=== PATIENT | female | born 1950 | race African-American/Black ===

== ENCOUNTER 2020-05-18 09:24 | Inpatient (IN) | payer OTHER ==
[~2020-05-18] VITALS: Ht 165.1 cm; Wt 74.7 kg
[2020-05-18 09:25] VITALS: BP 238/138
[2020-05-18 09:41] LABS: ABSOLUTE NEUTROPHILS 5.1 thou/uL (1.4-8.2); BASOPHILS 0.5 % (0.0-2.0); EOSINOPHILS 1.9 % (0.0-3.0); HEMATOCRIT 35.3 % (37.0-47.0); HEMOGLOBIN 11.6 gm/dL (12.0-15.0); LYMPHOCYTES 28.6 % (24.0-44.0); MCV 81.8 fL (80.0-100.0); MONOCYTES 7.5 % (1.0-8.0); PLATELET COUNT 328 thou/uL (150-400); POLYS 61.5 % (36.0-66.0); RBC 4.31 mil/uL (4.20-5.00); RDW 14.4 % (10.5-14.5); WBC 8.2 thou/uL (4.0-11.0)
[2020-05-18 09:49] LABS: ANION GAP 10 mmol/L (7-16); BUN 39 mg/dL (7-18); CALCIUM 8.8 mg/dL (8.5-10.1); CHLORIDE 106 mmol/L (98-107); CO2 24 mmol/L (21-32); CREATININE 2.1 mg/dL (0.6-1.0); GLUCOSE 177 mg/dL (74-106); POTASSIUM 4.2 mmol/L (3.5-5.1); SODIUM 140 mmol/L (136-145)
--- NOTE | 2020-05-18 09:51 | EKG ---
[facility] [place] [address] ELECTROCARDIOGRAM REPORT Name: MARIANO EISENBERG Room #: PRE [facility]..#: [id number] Admission: Attend Phys: Discharge: Date of : 46 Report #: [id number] THIS REPORT FOR: cc: Antonio Loja MD [facility] ~ THIS REPORT FOR: //name// [facility] ED Test Date: 2020-05-18 Test Time: 09:29:41 Pat Name: MARIANO EISENBERG Department: Room: Gender: F Cancer Genetics Assistant: BRIAN : 1950 Requested By: Robert Hsieh Order Number: [id number] MD: Antonio Loja Measurements Intervals [place] Rate: 78 P: 67 [place]: 153 QRS: 21 QRSD: 86 T: 240 QT: 379 QTc: 432 Interpretive Statements Sinus rhythm Ventricular premature complex J Point elevation V-2 Probable left atrial enlargement Probable LVH with secondary repol abnrm No previous ECG available for comparison Electronically Signed On 05-18-2020 9:51:04 RADIO ELECTRICIAN by Antonio Loja [email or web address] <ELECTRONICALLY SIGNED> By: Antonio Loja MD, FACC 05/18/20 0951 8 Antonio Loja MD, FACC /EPI
[2020-05-18 09:58] LABS: ALBUMIN 2.8 g/dL (3.4-5.0); SGOT 27 U/L (15-37); SGPT 21 U/L (30-65); TOTAL BILIRUBIN 0.3 mg/dL (0.2-1.0); TOTAL PROTEIN 8.4 g/dL (6.4-8.2); TROPONIN-I <0.06 ng/mL (<0.06)
[2020-05-18 09:59] LABS: BE(vivo) -2.9 mmol/L (-2 to +3); HCO3 20.6 mmol/L (22.0-26.0); PCO2 31.6 mmHg (35.0-45.0); pH 7.431 (7.360-7.450); sO2 95.9 % (92.0-98.0)
[2020-05-18] MEDS ORDERED: ZESTRIL40 MG PO (10:36)
[2020-05-18] MEDS ORDERED: FUROSEMIDE 20 M20 MG PO (10:37)
[2020-05-18 10:38] VITALS: BP 208/114
[2020-05-18] MEDS ORDERED: ATENOLOL 50MG T50 M1 PO (10:41)
[2020-05-18] MEDS ORDERED: NEURONTIN 300M300 M2 PO (10:41)
[2020-05-18] MEDS ORDERED: DULOXETINE HCL30 MG PO (10:42)
[2020-05-18] MEDS ORDERED: LANTUS SOL100 UNIT/1 SUBQ (10:43)
[2020-05-18] MEDS ORDERED: LIPITOR 40 MG T40 M1 PO (10:43)
[2020-05-18] MEDS ORDERED: PROTONIX40 M2 PO (10:44)
[2020-05-18] MEDS ORDERED: NOVOLOG FL100 UNIT/M (10:44)
[2020-05-18] MEDS ORDERED: METOPROLOL SUCC25 M1 PO (10:45)
[2020-05-18 13:32] LABS: CHOLESTEROL 133 mg/dL (<200); HDL CHOLESTEROL 47 mg/dL (>40); LDL CHOLESTEROL 66 mg/dL (<100); TC:HDL 2.8 Ratio (Not establshd); TRIGLYCERIDE 103 mg/dL (<150); VLDL 21 mg/dL (<40)
[2020-05-18 20:17] VITALS: BP 160/78
[2020-05-18 21:09] VITALS: BP 177/93
[2020-05-19 00:36] VITALS: BP 167/98
--- NOTE | 2020-05-19 02:04 | NUR ---
PT ADMITTED FROM ER TO ROOM 217, a&o, VSS BP REMAINS ELEVATED, NO C/O PAIN, ORIENTED TO ROOM AND BED, STATES SHE USES A CANE AT HOME AND THINKS SHE LEFT IT IN AMBULANCE, WILL CON'T TO MONITOR PER PPOC.
[2020-05-19 02:54] VITALS: BP 177/86
[2020-05-19 05:46] LABS: ALBUMIN 2.3 g/dL (3.4-5.0); ANION GAP 8 mmol/L (7-16); BUN 38 mg/dL (7-18); CHLORIDE 108 mmol/L (98-107); CO2 26 mmol/L (21-32); CREATININE 1.9 mg/dL (0.6-1.0); GLUCOSE 146 mg/dL (74-106); MAGNESIUM 1.9 mg/dL (1.8-2.4); PHOSPHORUS 4.2 mg/dL (2.5-4.9); SODIUM 142 mmol/L (136-145); TROPONIN-I <0.06 ng/mL (<0.06)
[2020-05-19 07:06] LABS: GLYCOHEMOGLOBIN (HGB A1C) 4.9 % (4.8-5.6)
--- NOTE | 2020-05-19 09:53 | 2DMMODE ---
[facility] [address] [place] [address] 2 D/M-MODE ECHOCARDIOGRAM Name: MARIANO EISENBERG Room #: 217-P ADM IN M.R.#: [id number] Admission: 05/18/20 Attend Phys: Monae Riley Discharge: Date of : 46 Report #: [id number] THIS REPORT FOR: cc: FAM - Family physician unknown FAM - Family physician unknown Neel Marcelino MD [facility] ~ APPROVED REPORT Study performed: 05/19/2020 10:07:32 EXAM: Comprehensive 2D, Doppler, and color-flow Echocardiogram Patient Location: Bedside Room #: 217 Status: routine BSA: 1.84 HR: 70 bpm BP: 177/86 mmHg Rhythm: NSR Other Information Study Quality: Good Indications Diabetes Dyspnea Hypertension/HDD 2D Dimensions RVDd: 38.16 mm IVSd: 12.27 (7-11mm) LVOT Diam: 19.01 (18-24mm) LVDd: 41.61 mm PWd: 12.53 (7-11mm) Ascending Ao: 33.15 (22-36mm) LVDs: 29.69 (25-40mm) Aortic Root: 30.40 mm IVC: 15.00 mm Volumes Left Atrial Volume (Systole) Single Plane 4CH: 60.52 mL Single Plane 2CH: 39.24 mL LA ESV Index: 29.00 mL/m2 Aortic Valve AoV Peak Jose.: 1.29 m/s AO Peak Gr.: 6.68 mmHg LVOT Max P.09 mmHg LVOT Max V: 1.01 m/s [facility] [address] [address] 2 D/M-MODE ECHOCARDIOGRAM Name: MARIANO EISENBERG Room #: 217-P [facility] IN M.R.#: [id number] Admission: 05/18/20 Attend Phys: Monae Evans Discharge: Date of : 46 Report #: [id number] ARIEL Vmax: 2.22 cm2 Mitral Valve E/A Ratio: 1.5 MV Decel. Time: 197.76 ms MV E Max Jose.: 1.38 m/s MV A Jose.: 0.94 m/s MV PHT: 57.35 ms IVRT: 106.11 ms Pulmonary Valve PV Peak Jose.: 0.80 m/s PV Peak Gr.: 2.55 mmHg Pulmonary Vein P Vein S: 0.44 m/s P Vein A: 0.24 m/s P Vein D: 0.29 m/s P Vein A Dur.: 106.1 msec P Vein S/D Ratio: 1.52 Tricuspid Valve TR Peak Jose.: 3.27 m/s TR Peak Gr.: 42.82 mmHg PA Pressure: 48.00 mmHg Left Ventricle The left ventricle is normal size. There is normal LV segmental wall motion. Mild concentric left ventricular hypertrophy. The left ventricular systolic function is normal. The left ventricular ejection fraction is within the normal range. LVEF is 60-65%. Moderate diastolic dysfunction is present (pseudonormal filling). Right Ventricle The right ventricle is normal size. The right ventricular systolic function is normal. Atria The left atrium size is normal. Right atrium is mildly dilated. Aortic Valve The aortic valve is normal in structure. No aortic regurgitation is present. There is no aortic valvular stenosis. Mitral Valve Moderate mitral annular calcification Mild mitral regurgitation. No evidence of mitral valve stenosis. [facility] [place] [address] 2 D/M-MODE ECHOCARDIOGRAM Name: MARIANO EISENBERG Room #: 217-P [facility] IN M.R.#: [id number] Admission: 05/18/20 Attend Phys: Monae Evans Discharge: Date of : 46 Report #: [id number] Tricuspid Valve The tricuspid valve is normal in structure. There is mild tricuspid regurgitation. Estimated PAP 48 mmHg. There is moderate pulmonary hypertension. Pulmonic Valve The pulmonary valve is normal in structure. There is no pulmonic valvular regurgitation. Great Vessels The aortic root is normal in size. IVC is normal in size and collapses >50% with inspiration. Pericardium There is no pericardial effusion. <Conclusion> The left ventricular systolic function is normal. There is normal LV segmental wall motion. LVEF is 60-65%. Moderate diastolic dysfunction The aortic valve is normal in structure. No aortic regurgitation or stenosis Moderate mitral annular calcification. Mild mitral regurgitation. There is mild tricuspid regurgitation. Estimated pulmonary artery pressure of 48 mmHg. There is no pericardial effusion. <ELECTRONICALLY SIGNED> By: Neel Marcelino MD, FACC 05/19/20952 2 2 Neel Marcelino MD, FACC /INF
[2020-05-19 12:00] VITALS: BP 193/93
[2020-05-19 16:06] VITALS: BP 180/85
[2020-05-19 22:41] VITALS: BP 198/95
[2020-05-20 02:25] VITALS: BP 205/94
--- NOTE | 2020-05-20 03:53 | NUR ---
PT RESTING QUIETLY IN ROOM THRU THE NOC, NO C/O PAIN, VSS EXCEPT BP REMAINS HIGH AFTER BP MEDS GIVEN, UP WITH SBA TO BSC, WILL CON'T TO MONITOR PER PPOC.
[2020-05-20 05:54] LABS: ALBUMIN 2.4 g/dL (3.4-5.0); CALCIUM 8.2 mg/dL (8.5-10.1); CREATININE 1.8 mg/dL (0.6-1.0); PHOSPHORUS 3.7 mg/dL (2.5-4.9)
[2020-05-20 06:15] VITALS: BP 200/98
[2020-05-20 08:23] VITALS: BP 206/98
[2020-05-20 11:30] VITALS: BP 199/110
[2020-05-20 17:00] VITALS: BP 203/102
[2020-05-20 20:01] VITALS: BP 206/91
--- NOTE | 2020-05-20 20:16 | NUR ---
RECEIVED PT'S CARE AROUND 0735; PT. ON BED RESTING WITH EYES CLOSED; EQUAL CHEST RISING NOTICED; SR ON THE MONITOR; SBP ON THE 200s; PHYSICIAN NOTIFIED; ORDERS ON PLACED; AM MEDICATION GIVEN; RE-ASSESSMENT SBP ON THE 190s; PHYSICIAN NOTIFIED; ORDERS ON PLACED; MEDICATION GIVEN; RE-ASSESSMENT PT'S BP ON THE 190s; SUGESTTED CARDIOLOGY CONSULT; NO NEW ORDERS; PT. C/O SOB; 2L 02 APPLIED; PHYSICIAN NOTIFIED; ORDERS ON PLACED; LASIX GIVEN; RE-ASSESSMENT PT. ST. DECREASE SOB; DURING THE EVENING SBP 200s; PHYSICIAN NOTIFIED; SUGGESTED CARDIOLOGY CONSULT; DR. DIALLO CONSULTED; ORDERS RECEIVED; PO CARDIZEM GIVEN; PASSED ON REPORT; ASSESSMENT CHARGED; FOLLOWING POC; PASSED ON REPORT;
--- NOTE | 2020-05-21 04:03 | NUR ---
Assumed pt care at 1900. Pt is alert and oriented. No sign of distressd noted in pt. Pt is laying in bed, resting comfortably. Denies any pain. Elevated BP noted upon assessment. Fall precaution in place. Scheduled meds administered to pt. Tolerated PO intake. No acute events noted overnight. Continue to monitor. No further needs at this time
[2020-05-21 05:12] VITALS: BP 157/81
[2020-05-21 07:40] VITALS: BP 174/82
[2020-05-21 11:10] VITALS: BP 161/82
--- NOTE | 2020-05-21 14:04 | NUR ---
I have reviewed the documentation by ARLINE RAMOS from 05/21/20 to 05/21/20 and I concur with it. AYAH CUELLAR, PT, DPT
--- NOTE | 2020-05-21 15:30 | NUR ---
Met with patient who admits with pulmonary edema. [facility] with elevator. Patient does not drive. Her DPOA is her sister. Patient reports she has home health care and to call "Christin" who knows her care. Sp with Christin. Christin reports she assists patient daily 4 hours a day. She cooks, cleans and will be her transport to home. Patient requesting a walker for home. [facility] to deliver walker to hospital in am. [facility] following.
[2020-05-21 16:15] VITALS: BP 151/81
[2020-05-21 19:58] VITALS: BP 167/86
[2020-05-22 04:39] VITALS: BP 144/78
--- NOTE | 2020-05-22 05:16 | NUR ---
PATIENTS CARES WERE ASSUMED AT SHIFT CHANGE. PATIENT DOES DISPLAY SOME MR TENDENCIES. A RENAL DOPPLER ULTRASOUND TO BE DONE. PATIENT HAS BEEN NPO SINCE MIDNIGHT. PATIENT MAY BE DISCHARGED AFTER THE DOPPLER IS FINISHED. PATIENTS BED IS IN A LOW AND LOCKED PPOSITION.
[2020-05-22 08:05] VITALS: BP 170/88
[2020-05-22 08:15] VITALS: BP 170/88
[2020-05-22] MEDS ORDERED: CARDIZEM CD120 MG PO (08:39)
[2020-05-22] MEDS ORDERED: TRANDATE 200 M200 M1 PO (08:39)
[2020-05-22 11:02] VITALS: BP 170/88
--- NOTE | 2020-05-22 11:23 | NUR ---
PT CARE ASSUMED AT 0700. ASSESSMENT CHARTED. MEDICATION CHARTED. RAC IV. PT UTILIZED BSC. RENAL US AT 0900. PT TO BE DISCHARGED HOME. TELEMETRY D/C'D. IV D/C'D. DISCHARGE PAPERWORK AND MEDICATION PPERWORK SIGNED.
--- NOTE | 2020-05-22 12:19 | NUR ---
RECIEVED A SECOND ORDER FOR O.T. EVALUATION. ONE HAD BEEN COMPLETED THE PREVIOUS DAY. CONSULTED DR. PADRON WHO WROTE THE ORDER. DR. PADRON WAS WANTING TO KNOW IF Pt NEEDED HOME HEALTH. INFORMED DR. PADRON THAT THE EVALUATION FROM YESTERDAY INDICATED THAT Pt DID NOT NEED O.T. HOME HEALTH SERVICES. DR. VAIL INDICATED THAT ANOTHER EVALUATION WAS NOT NEEDED.
[2020-05-22 14:04] VITALS: BP 170/88
--- NOTE | 2020-05-22 14:05 | NUR ---
JOHN delievered to the pt this morning per anand. Script faxed per the dc discharge planner. Pt dcing home today with her caregiver Christin. No cm interventions indicated. Pt denies need for hh as she has her caregiver in place at home.
--- NOTE | 2020-05-22 14:15 | NUR ---
FAXED SCRIPT FOR [facility] AND PT NOTES TO [facility] RECEIVED CONFIRMATION SPOKE WITH ROSETTA FROM [facility] DIAS HAS BEED DELIVERED PRIOR TO DC.
== END 2020-05-22 13:45 | disposition home or self-care (01) | DRG 291 ==
LOC: ER 09:24 → 2N 15:06 → EROBS 15:06 → 2N 20:57
PROVIDERS: Emergency Medicine; ADMIT Hospitalist; ATTEND Hospitalist
DX: I13.0 Hypertensive heart and chronic kidney disease with heart failure and stage 1 through stage 4 chronic kidney disease, or unspecified chronic kidney disease (principal); N17.0 Acute kidney failure with tubular necrosis; E43 Unspecified severe protein-calorie malnutrition; I50.33 Acute on chronic diastolic (congestive) heart failure; I16.0 Hypertensive urgency; Z20.828 Contact with and (suspected) exposure to other viral communicable diseases; E78.5 Hyperlipidemia, unspecified; E66.9 Obesity, unspecified; G47.00 Insomnia, unspecified; N32.81 Overactive bladder; N18.9 Chronic kidney disease, unspecified; K21.9 Gastro-esophageal reflux disease without esophagitis; M81.0 Age-related osteoporosis without current pathological fracture; Z60.2 Problems related to living alone; I27.20 Pulmonary hypertension, unspecified; E11.22 Type 2 diabetes mellitus with diabetic chronic kidney disease; Z88.0 Allergy status to penicillin; Z68.27 Body mass index [BMI] 27.0-27.9, adult; Z79.899 Other long term (current) drug therapy
CPT/HCPCS: 10081

== ENCOUNTER 2020-07-10 22:59 | Inpatient (IN) | payer OTHER ==
[~2020-07-10] VITALS: Ht 160 cm; Wt 93.9 kg
[~2020-07-10 22:59] MED LIST: ATENOLOL 50MG T50 M1 PO; CARDIZEM CD120 MG PO; DULOXETINE HCL30 MG PO; FUROSEMIDE 20 M20 MG PO; LANTUS SOL100 UNIT/1 SUBQ; LIPITOR 40 MG T40 M1 PO; METOPROLOL SUCC25 M1 PO; NEURONTIN 300M300 M2 PO; NOVOLOG FL100 UNIT/M; PROTONIX40 M2 PO; TRANDATE 200 M200 M1 PO; ZESTRIL40 MG PO
[2020-07-10 23:00] VITALS: BP 140/80
[2020-07-10] MEDS ORDERED: CATAPRES-TTS 11 EACH TRANSDERM (23:10)
[2020-07-10 23:20] LABS: ABSOLUTE NEUTROPHILS 4.4 thou/uL (1.4-8.2); BASOPHILS 0.9 % (0.0-2.0); EOSINOPHILS 1.5 % (0.0-3.0); HEMATOCRIT 25.1 % (37.0-47.0); HEMOGLOBIN 8.4 gm/dL (12.0-15.0); MCH 27.2 pg (26.0-34.0); MCHC 33.6 g/dL (28.0-37.0); MONOCYTES 8.9 % (1.0-8.0); PLATELET COUNT 290 thou/uL (150-400); POLYS 65.7 % (36.0-66.0); RBC 3.09 mil/uL (4.20-5.00); RDW 14.4 % (10.5-14.5); WBC 6.6 thou/uL (4.0-11.0)
[2020-07-10 23:26] LABS: ANION GAP 14 mmol/L (7-16); BUN 37 mg/dL (7-18); CALCIUM 7.7 mg/dL (8.5-10.1); CHLORIDE 109 mmol/L (98-107); CO2 20 mmol/L (21-32); CREATININE 2.5 mg/dL (0.6-1.0); GLUCOSE 194 mg/dL (74-106); SODIUM 143 mmol/L (136-145)
[2020-07-10 23:34] LABS: TROPONIN-I <0.06 ng/mL (<0.06)
[2020-07-11] VITALS (83 sets, daily range): BP systolic 67–167; BP diastolic 51–110
[2020-07-11] MEDS ORDERED: CATAPRES-TTS 20.2 MG TOP (00:08)
[2020-07-11] MEDS ORDERED: TRANDATE 200 M200 M1 PO (00:09)
[2020-07-11] MEDS ORDERED: GLIPIZIDE 10 MG10 MG PO (00:11)
[2020-07-11] MEDS ORDERED: DILTIAZEM ER240 M1 PO (00:12)
[2020-07-11 01:43] LABS: INR 1.1; PROTIME 11.7 Seconds (9.3-11.4)
[2020-07-11 02:58] LABS: URINE BILIRUBIN NEGATIVE (Negative); URINE BLOOD NEGATIVE (Negative); URINE CLARITY CLOUDY; URINE COLOR YELLOW; URINE GLUCOSE-RANDOM* NEGATIVE (Negative); URINE KETONES TRACE (Negative); URINE LEUKOCYTES-REFLEX 3+ (Negative); URINE NITRITE-REFLEX NEGATIVE (Negative); URINE PROTEIN (DIPSTICK) 3+ (Negative)
[2020-07-11 03:33] LABS: BACTERIA-REFLEX >30 Many /HPF (None Seen); CASTS None Seen /LPF (None Seen); CRYSTALS None Seen /LPF (None Seen); MUCUS 0-3 Light strn/LPF (None Seen); SQUAMOUS 0-3 Few /LPF (0-3); URINE RBC 0-2 Rare /HPF (0-2); URINE WBC-REFLEX >25 Many /HPF (0-5); WBC CLUMPS Packed (None Seen)
[2020-07-11 04:02] LABS: BE(vivo) -12.4 mmol/L (-2 to +3); HCO3 12.1 mmol/L (22.0-26.0); PCO2 23.7 mmHg (35.0-45.0); PO2 85.1 mmHg (80.0-100.0); pH 7.326 (7.360-7.450)
--- NOTE | 2020-07-11 07:18 | EKG ---
[address] [place] [address] ELECTROCARDIOGRAM REPORT Name: MARIANO EISENBERG Room #: 238- ADM IN M.R.#: [id number] Admission: 07/11/20 Attend Phys: Mariela Sheets MD Discharge: Date of : 46 Report #: [id number] [facility] ED Test Date: 2020-07-10 Test Time: 23:05:57 Pat Name: MARIANO EISENBERG Department: Room: 238 Gender: F Loan Operations Manager: ALEIDA : 1950 Requested By: Ros Epstein Order Number: [id number] MD: Antonio Loja Measurements Intervals [place] Rate: 66 P: 254 KS: 250 QRS: 17 QRSD: 86 T: 211 QT: 391 QTc: 410 Interpretive Statements Sinus or ectopic atrial rhythm Prolonged KS interval Borderline repolarization abnormality Compared to ECG 05/18/2020 09:29:41 Ectopic atrial rhythm now present First degree AV block now present Sinus rhythm no longer present Ventricular premature complex(es) no longer present ST (T wave) deviation no longer present Electronically Signed On 07-11-2020 7:18:00 LADLE LINER by Antonio Loja [email or web address] <ELECTRONICALLY SIGNED> By: Antonio Loja MD, [facility] 07/11/2018 2305 2305 Antonio Loja MD, [facility] /EPI
--- NOTE | 2020-07-11 07:45 | NUR ---
This RN received patient from ER and admitted patient to ICU room 238. Patient arrives on venti mask, complaining of nausea. Patient on dopamine and heparin gtt. Admission assessment documented. Care transferred to day shift RN.
--- NOTE | 2020-07-11 10:09 | NUR ---
ASSESSMENT: CM REVIEWED CHART AND ATTEMPTED TO CONTACT PT BUT NO ANSWER. CM REACHED OUT TO PTS DPOA MEAGAN NARAYANAN (NIECE) WELL PTS CAREGIVER CLEOPATRA. PT LIVES IN AN APT ALONE. PT WAS ADMITTED DUE TO CHF EXACERBATION AND WAS FOUND TO BE BRADYCARDIC AND HYPOTENSIVE. PT IS ON DOPAMINE AND HEP GTT. PT IS ON IV ANBX AND CURRENTLY ON VENTI MASK. PTS COVID TEST WAS NEGATIVE X1. PTS CAREGIVER CLEOPATRA COMES TO HER HOME 6X/WEEK FOR 4HRS/DAY. PT USES A WALKER AT HOME FOR AMBULATION. PTS BROTHER IS CURRENTLY HOSPITALIZED WELL HER SISTER. MEAGAN CAN BE REACHED AT [phone] AND CLEOPATRA HER CAREGIVER CAN BE REACHED AT [phone]. CM WILL CONTINUE TO FOLLOW TO ASSIST NEEDED.
--- NOTE | 2020-07-11 12:45 | EKG ---
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
--- NOTE | 2020-07-11 19:30 | NUR ---
6L NC. CONFUSED AT TIMES VQ SCAN TODAY. PENDING 2ND COVID TEST. LASIX GIVEN TO INCREASE URINE OUTPUT. DOPAMINE GTT TITRATED OFF. PATIENT KEYS SENT WITH [facility] HOME HEALTH NURSE.
[2020-07-12] VITALS (27 sets, daily range): BP systolic 145–193; BP diastolic 72–102
[2020-07-12 04:38] LABS: CALCIUM 8.1 mg/dL (8.5-10.1); CREATININE 2.9 mg/dL (0.6-1.0); PHOSPHORUS 4.8 mg/dL (2.5-4.9); POTASSIUM 4.4 mmol/L (3.5-5.1)
[2020-07-12 04:47] LABS: HEMATOCRIT 24.1 % (37.0-47.0); MCH 26.8 pg (26.0-34.0); MCHC 33.1 g/dL (28.0-37.0); MCV 81.1 fL (80.0-100.0); RBC 2.97 mil/uL (4.20-5.00); RDW 14.6 % (10.5-14.5); WBC 11.7 thou/uL (4.0-11.0)
--- NOTE | 2020-07-12 06:03 | NUR ---
PATIENT CARE ASSUMED 1900. ALERT AND ORIENTED X 3. INTERMITTENT FORGETFULNESS. VITALS STABLE, PRESSURES IN 150, 160. PT DENIES ANY PAIN, CHEST DISCOMFORT, NAUSEA OR VOMITING. PT 2ND COVID SWAB CAME BACK NEGATIVE. PT MAINTAINED ON HEPARIN GTT WITH Q6H APTT TEST. REMAINS SR ON THE MONITOR. NO FEVER O SOB REPORTED. WILL CONTINUE TO MONITOR. PATIENT TRANSFERRED TO POD 3 AT 0550 THIS MORNING.
--- NOTE | 2020-07-12 07:48 | NUR ---
Pt received to room 250 at 0610 from room 238. Pt remains A&O x4, monitor sinus rhythm. Heparin gtt @ 12 unit/kg/hour, awaiting morning PTT results. Urine output [address] Patten in this a.m. to speak with pt and outline plan of care from renal standpoint.
[2020-07-12 09:28] LABS: PROT/CREAT RATIO 4.2; URINE CREATININE-RANDOM* 26.5 mg/dL; URINE PROTEIN-RANDOM* 112.5 mg/dL (<11.9)
--- NOTE | 2020-07-12 17:08 | NUR ---
REPORT GIVEN TO MARIA A WOODRUFF. WILL TRANSFER TO ROOM 207. aPTT at 1300: 61.7. HEPARIN DRIP INFUSING AT 10 U/KG/HR OR 8.3 CC/HR. WILL RECHECK APTT IN AM.
[2020-07-12 22:38] LABS: % SATURATION 20 % (20-39); IRON 70 ug/dL (50-170); TIBC 357 ug/dL (250-450)
[2020-07-12 23:04] LABS: FOLIC ACID 6.7 ng/mL (8.6-58.9)
[2020-07-13] VITALS (7 sets, daily range): BP systolic 163–209; BP diastolic 78–101
[2020-07-13 03:52] LABS: ALBUMIN 2.7 g/dL (3.4-5.0); CALCIUM 8.3 mg/dL (8.5-10.1); CREATININE 2.4 mg/dL (0.6-1.0); PHOSPHORUS 4.1 mg/dL (2.6-4.7); POTASSIUM 4.4 mmol/L (3.5-5.1)
[2020-07-13 09:18] LABS: HEMATOCRIT 25.2 % (37.0-47.0); HEMOGLOBIN 8.2 gm/dL (12.0-15.0); MCH 26.7 pg (26.0-34.0); MCHC 32.4 g/dL (28.0-37.0); MCV 82.6 fL (80.0-100.0); RBC 3.05 mil/uL (4.20-5.00); RDW 14.4 % (10.5-14.5); WBC 9.8 thou/uL (4.0-11.0)
--- NOTE | 2020-07-13 16:47 | NUR ---
ASSESSMENT CHARTED. PT ALERT AND ORIENTED. DENIED HAVING PAIN OR DISCOMFORT. PRN AND SCHEDULED BP MED GIVEN. PT EDUCATED ON IMPORTANCE OF MANAGING AND CONTROLLING HER BP AT HOME. PT VERBERLISED UNDERSTANDING. HEPARIN GTT INFUSING PER PROTOCAL. NO CONCERNS AT THIS TIME.
[2020-07-14] VITALS (7 sets, daily range): BP systolic 178–206; BP diastolic 80–104
[2020-07-14 03:34] LABS: HEMATOCRIT 26.4 % (37.0-47.0); HEMOGLOBIN 8.7 gm/dL (12.0-15.0); MCH 26.7 pg (26.0-34.0); MCHC 33.1 g/dL (28.0-37.0); MCV 80.8 fL (80.0-100.0); RBC 3.27 mil/uL (4.20-5.00); RDW 13.9 % (10.5-14.5); WBC 9.2 thou/uL (4.0-11.0)
[2020-07-14 03:47] LABS: ALBUMIN 2.7 g/dL (3.4-5.0); CALCIUM 8.7 mg/dL (8.5-10.1); CREATININE 2.1 mg/dL (0.6-1.0); PHOSPHORUS 4.1 mg/dL (2.6-4.7)
--- NOTE | 2020-07-14 07:21 | NUR ---
ON HEPARIN GTT.PTT HAS BEEN THERAPEUTIC.COMPLAIN OF LEG PAIN;TYLENOL GIVEN.BP ELEVATED;HYDRALAZINE GIVEN.MONITOR SHOWS SR.POC CONTINUED.
--- NOTE | 2020-07-14 09:56 | 2DMMODE ---
[facility] [place] [address] 2 D/M-MODE ECHOCARDIOGRAM Name: MARIANO EISENBERG Room #: 207-P ADM IN M.R.#: [id number] Admission: 07/11/20 Attend Phys: Isreal Vasquez MD Discharge: Date of : 46 Report #: [id number] THIS REPORT FOR: cc: FAM - Family physician unknown FAM - Family physician unknown Genaro Lanza MD ~ APPROVED REPORT Study performed: 07/14/2020 09:07:18 EXAM: Limited 2D, Doppler, and color-flow Echocardiogram Patient Location: Bedside Room #: 207 Status: routine BSA: 1.94 HR: 91 bpm BP: 182/92 mmHg Rhythm: NSR Other Information Study Quality: Adequate Indications Pulmonary Embolism Limited echo to evaluate right heart. (Complete echo done 05/19/20). Hx: HTN, HLP, DM. 2D Dimensions RVDd: 37.23 mm Aortic Valve AoV Peak Jose.: 1.72 m/s AO Peak Gr.: 11.83 mmHg Tricuspid Valve TR Peak Jose.: 4.07 m/s RAP Estimate: 10.00 mmHg TR Peak Gr.: 66.32 mmHg PA Pressure: 76.00 mmHg Left Ventricle The left ventricle is normal size. There is normal LV segmental wall motion. Mild concentric left ventricular hypertrophy. Left ventricular systolic function is normal. LVEF is 60-65%. [facility] [address] [place] [address] 2 D/M-MODE ECHOCARDIOGRAM Name: MARIANO EISENBERG Room #: 207-P ADM IN M.R.#: [id number] Admission: 07/11/20 Attend Phys: Isreal Vasquez, Discharge: Date of : 46 Report #: [id number] Right Ventricle The right ventricle is normal size. The right ventricular systolic function is normal. Atria Left atrium is dilated. Right atrium is mildly dilated. Aortic Valve The aortic valve is normal in structure. No aortic regurgitation is present. There is no aortic valvular stenosis. Mitral Valve Moderate mitral annular calcification. Mild mitral regurgitation. Tricuspid Valve The tricuspid valve is normal in structure. Moderate tricuspid regurgitation. Estimated PAP is 45mmHg. Pulmonic Valve Pulmonic valve is not well visualized. Great Vessels Appears to be visually within normal limits IVC is dilated and collapses <50% with inspiration. Pericardium There is no pericardial effusion. Left and right pleural effusions. <Conclusion> The left ventricle is normal size. Mild concentric left ventricular hypertrophy. LVEF is 60-65%. The right ventricle is normal size. Left atrium is dilated. Right atrium is mildly dilated. The aortic valve is normal in structure. Moderate mitral annular calcification. Mild mitral regurgitation. The tricuspid valve is normal in structure. Moderate tricuspid regurgitation. Estimated PAP is 45mmHg. Pulmonic valve is not well visualized. Appears to be visually within normal limits [facility] [address] [place] [address] 2 D/M-MODE ECHOCARDIOGRAM Name: FAINAMARIANO Room #: 207-P ADM IN M.R.#: [id number] Admission: 07/11/20 Attend Phys: Isreal Vasquez, Discharge: Date of : 46 Report #: [id number] There is no pericardial effusion. Left and right pleural effusions. <ELECTRONICALLY SIGNED> By: Genaro Lanza MD 07/14/20954 4 4 Genaro Lanza MD /INF
[2020-07-15 05:54] LABS: ALBUMIN 2.8 g/dL (3.4-5.0); CALCIUM 8.8 mg/dL (8.5-10.1); CREATININE 1.9 mg/dL (0.6-1.0); PHOSPHORUS 4.4 mg/dL (2.6-4.7); POTASSIUM 3.7 mmol/L (3.5-5.1)
--- NOTE | 2020-07-15 07:26 | NUR ---
PATIENT STATES SHE SLEPT AFTER GIVING HER MELATONIN.DENIES PAIN.COMPLAIN OF SOB.INCREASED HER O2 TO 3L THEN TITRATED BACK THIS MORNING TO 2L.CHEST XRAY WAS ORDERED STAT.BP ELEVATED;HYDRALAZINE GIVEN.MONITOR SHOWS SR.POC CONTINUED.
[2020-07-15 08:15] VITALS: BP 181/85
[2020-07-15 11:30] VITALS: BP 180/79
[2020-07-15 15:15] VITALS: BP 177/84
--- NOTE | 2020-07-15 17:30 | NUR ---
TO UNIT FROM ICU BY BRITTNI, REPORT FROM MARIA A SPARROW. ACCOMPANIED BY HIS . SR/ST PER TELE. DENIES CP, SOA. FALL PRECAUTIONS ACTIVATED.
--- NOTE | 2020-07-15 18:26 | NUR ---
AAOX4. INTERMITTENTLY ANXIOUS. HTN PERSISTS. SR PER TELE. FALL PRECAUTIONS IN PLACE.
[2020-07-15 19:32] VITALS: BP 169/81
[2020-07-16 00:24] VITALS: BP 179/90
[2020-07-16 05:12] VITALS: BP 192/97
[2020-07-16 06:19] LABS: ALBUMIN 2.8 g/dL (3.4-5.0); CALCIUM 8.6 mg/dL (8.5-10.1); CREATININE 2.1 mg/dL (0.6-1.0); PHOSPHORUS 5.1 mg/dL (2.5-4.9); POTASSIUM 3.8 mmol/L (3.5-5.1)
[2020-07-16 08:00] VITALS: BP 160/87
--- NOTE | 2020-07-16 08:08 | NUR ---
SLEPT MOST OF SHIFT. DENIES COMPLAINTS OF PAIN OR SHORTNESS OF AIR. WORKING ON GOALS AND PLAN OF CARE FOR NOC. PROGRESSING SLOWLY TOWARDS DISCHARGE GOALS. CONTINUE TO ASSES CLOSELY.
[2020-07-16 08:42] LABS: HEMATOCRIT 24.3 % (37.0-47.0); MCHC 32.8 g/dL (28.0-37.0); MCV 82.2 fL (80.0-100.0); RBC 2.96 mil/uL (4.20-5.00); RDW 14.5 % (10.5-14.5); WBC 7.8 thou/uL (4.0-11.0)
[2020-07-16 11:15] VITALS: BP 174/72
[2020-07-16 15:05] VITALS: BP 156/68
--- NOTE | 2020-07-16 18:24 | NUR ---
PT IS ALERT AND ORIENTED TO PERSON, PLACE, AND SITUATION. PT HAS HAD CONSISTENTLY HIGH BLOOD PRESSURES IN AM IN 160/90S. DR PETERS SAW PT. POC OF CARE IS TO INCREASE ACTIVITY WITH NO SHORTNESS OF AIR. PT IS CURRENTLY ON 3L NC O2, WITH O2 SATS 96%. POC IS TO MANAGE BP, TITRATE O2. PT COMPLAINED OF LOWER LEG PAIN AFTER WORKING WITH PHYSICAL THERAPY. PT HAD LOWER EXTREMITY EDEMA BILAT +1. FALL PRECAUTIONS IN PLACE. NO CONCERNS AT THIS TIME.
[2020-07-16 20:11] VITALS: BP 177/74
[2020-07-17 00:24] VITALS: BP 165/72
[2020-07-17 01:51] LABS: HEMATOCRIT 23.8 % (37.0-47.0); HEMOGLOBIN 8.1 gm/dL (12.0-15.0); MCH 27.4 pg (26.0-34.0); MCHC 34.2 g/dL (28.0-37.0); MCV 80.2 fL (80.0-100.0); RBC 2.97 mil/uL (4.20-5.00); RDW 14.2 % (10.5-14.5)
[2020-07-17 01:57] LABS: CALCIUM 8.4 mg/dL (8.5-10.1); CREATININE 2.4 mg/dL (0.6-1.0); POTASSIUM 3.7 mmol/L (3.5-5.1)
[2020-07-17 05:55] VITALS: BP 182/79
--- NOTE | 2020-07-17 07:51 | NUR ---
ASSUEMD CARE OF PT AT 1900HRS. PT AOX3 AND LETS NEEDS BE KNOWN. FALL RECAUTION IN PLACE BUT PT IS NOT COMPLENT WITH FALL PRECAUTIONS. PT DENIED PAIN, NAUSEA OR SOA. PT HAS URINARY URGENCY AND FREQUENCY. ASSESSMENT CHARTED. PT WAS ABLE TO GET COMFORTABLE AND SLEEP PART OF THE SHIFT. REPORT GIVEN TO ONCOMING RN.
[2020-07-17 08:15] VITALS: BP 165/74
[2020-07-17] MEDS ORDERED: LEVOFLOXACIN750 MG PO (09:45)
[2020-07-17] MEDS ORDERED: ELIQUIS5 MG PO (09:47)
[2020-07-17] MEDS ORDERED: HYDRALAZINE 5050 MG PO (09:47)
[2020-07-17] MEDS ORDERED: BYSTOLIC10 MG PO (09:48)
[2020-07-17] MEDS ORDERED: NORVASC10 MG PO (09:48)
--- NOTE | 2020-07-17 14:39 | NUR ---
PT. TEARFUL TODAY GOT NEWS HER BOTHER . [facility] AOX4, "READY TO GO HOME TODAY". DENIES ANY DISCHARGE NEEDS AND HAS HER HOME HEALTH NURSE TO WORK WITH, NSR, NO ECTOPY, DENIES ANY SOB. IV NO SIGN'S OF INFILTRATION AT SITE, FLUSHES EASILY. INCONTINENT OR URINE CHANGED HER BRIEF 2 TIMES THIS AM FOR HER AND GETTING BETTER WITH USING THE RESTOOM.
[2020-07-17 14:42] VITALS: BP 165/74
--- NOTE | 2020-07-17 15:28 | NUR ---
Pt dc'd to home today via friend's car (arranged per Christin her caregiver). HH orders noted;however pt declined indicating she has Christin to take care of her and an RN that comes out through her [place] medicaid [employer] program. Strap Folding Machine Operator spoke with Christin as well to confirm. Christin confirmed pt has an RN once a week and another RN cm visit one x monthly. They do not wish to have any other agency or care givers involved a this time. HH referral declined. Care team updated.
[2020-07-17 15:31] VITALS: BP 165/74
== END 2020-07-17 15:10 | disposition home or self-care (01) | DRG 299 ==
LOC: ER 22:59 → ICU 07-11 00:41 → EROBS 07-11 00:41 → 2N 07-11 00:41 → ICU 07-11 05:40 → 2N 07-12 18:03
PROVIDERS: Emergency Medicine; Hospitalist; Nurse Practitioner; Nurse Practitioner Family; ADMIT Internal Medicine; ATTEND Internal Medicine
PROC: 5A09357 Assistance with Respiratory Ventilation, Less than 24 Consecutive Hours, Continuous Positive Airway Pressure (ICD-10-PCS; principal; 2020-07-11)
PROC: 5A12012 Performance of Cardiac Output, Single, Manual (ICD-10-PCS; principal; 2020-07-11)
DX: I82.413 Acute embolism and thrombosis of femoral vein, bilateral (principal); I50.33 Acute on chronic diastolic (congestive) heart failure; J96.01 Acute respiratory failure with hypoxia; E43 Unspecified severe protein-calorie malnutrition; I13.0 Hypertensive heart and chronic kidney disease with heart failure and stage 1 through stage 4 chronic kidney disease, or unspecified chronic kidney disease; N17.9 Acute kidney failure, unspecified; N39.0 Urinary tract infection, site not specified; N18.4 Chronic kidney disease, stage 4 (severe); I82.432 Acute embolism and thrombosis of left popliteal vein; E78.5 Hyperlipidemia, unspecified; D64.9 Anemia, unspecified; I27.20 Pulmonary hypertension, unspecified; E11.22 Type 2 diabetes mellitus with diabetic chronic kidney disease; E66.9 Obesity, unspecified; Z60.2 Problems related to living alone; I95.9 Hypotension, unspecified; B96.20 Unspecified Escherichia coli [E. coli] as the cause of diseases classified elsewhere; E53.8 Deficiency of other specified B group vitamins; N32.81 Overactive bladder; Z20.822 Contact with and (suspected) exposure to COVID-19; Z88.0 Allergy status to penicillin; Z68.36 Body mass index [BMI] 36.0-36.9, adult; Z86.19 Personal history of other infectious and parasitic diseases; Z79.899 Other long term (current) drug therapy
CPT/HCPCS: 10081; 10203

== ENCOUNTER 2020-07-26 21:33 | Inpatient (IN) | payer OTHER ==
[~2020-07-26] VITALS: Ht 165.1 cm; Wt 74.5 kg
[~2020-07-26 21:33] MED LIST changes: +BYSTOLIC10 MG PO; +CATAPRES-TTS 11 EACH TRANSDERM; +CATAPRES-TTS 20.2 MG TOP; +DILTIAZEM ER240 M1 PO; +ELIQUIS5 MG PO; +GLIPIZIDE 10 MG10 MG PO; +HYDRALAZINE 5050 MG PO; +LEVOFLOXACIN750 MG PO; +NORVASC10 MG PO
[2020-07-26 21:41] VITALS: BP 204/123
[2020-07-26 22:19] LABS: ABSOLUTE NEUTROPHILS 5.1 thou/uL (1.4-8.2); BASOPHILS 0.7 % (0.0-2.0); EOSINOPHILS 1.3 % (0.0-3.0); HEMATOCRIT 20.9 % (37.0-47.0); HEMOGLOBIN 7.2 gm/dL (12.0-15.0); MCH 27.6 pg (26.0-34.0); MCHC 34.5 g/dL (28.0-37.0); MCV 80.2 fL (80.0-100.0); MONOCYTES 12.9 % (1.0-8.0); PLATELET COUNT 406 thou/uL (150-400); POLYS 61.1 % (36.0-66.0); RBC 2.61 mil/uL (4.20-5.00); RDW 14.5 % (10.5-14.5); WBC 8.3 thou/uL (4.0-11.0)
[2020-07-26 22:35] LABS: APTT 25.9 Seconds (24.5-32.8); D-DIMER 3.4 ug/mLFEU (0.19-0.50); INR 1.1; PROTIME 11.4 Seconds (9.3-11.4)
[2020-07-26 22:40] LABS: CALCIUM 8.2 mg/dL (8.5-10.1); CREATININE 1.9 mg/dL (0.6-1.0); POTASSIUM 3.9 mmol/L (3.5-5.1)
[2020-07-26 22:44] LABS: ALBUMIN 2.9 g/dL (3.4-5.0); TOTAL BILIRUBIN 0.3 mg/dL (0.2-1.0); TOTAL PROTEIN 7.2 g/dL (6.4-8.2); TROPONIN-I 0.13 ng/mL (<0.06)
[2020-07-27] VITALS (9 sets, daily range): BP systolic 144–190; BP diastolic 61–110
--- NOTE | 2020-07-27 00:17 | NUR ---
HANDOFF SENT TO 3W
--- NOTE | 2020-07-27 03:49 | NUR ---
PT ADMITTED FROM ER FROM HOME. SHE LIVES ALONE AND STATES HER HOME HEALTH NURSE STOPPED SEEING HER BECAUSE OF HER DAUGHTER. SHE IS A POOR HISTORIAN AND DOES NOT REMEMBER HER MEDICATIONS. C/O LE PAIN. MEDICATED WITH 2 TYLENOL. LE VENOUS DOPPLERS ARE NEGATIVE. SCDS APPLIED. HEPARIN GTT STARTED ORDERED. BP ELEVATED. HYDRALAZINE IV GIVEN. BP DOWN TO 160'S. PT RESTING QUIETLY. EXPLAINED FALL PRECAUTIONS. BED DOWN. CALL LIGHT IN REACH. BED ALARM ON. CAREPLAN INITIATED.
--- NOTE | 2020-07-27 10:19 | EKG ---
[address] [address] ELECTROCARDIOGRAM REPORT Name: MARIANO EISENBERG Room #: 360- ADM IN .R.#: [id number] Admission: 07/26/20 Attend Phys: Chuy Russell MD Discharge: Date of : 46 Report #: [id number] [facility] ED Test Date: 2020-07-26 Test Time: 22:07:18 Pat Name: MARIANO EISENBERG Department: Room: 360 Gender: F Net Developer Architect: milton : 1950 Requested By: Jimmie Bell Order Number: [id number] MD: Guillermo Pérez Measurements Intervals [place] Rate: 94 P: 57 MA: 143 QRS: 22 QRSD: 84 T: 220 QT: 337 QTc: 422 Interpretive Statements Sinus rhythm Nonspecifi ST changes Compared to ECG 07/11/2020 03:29:26 Electronically Signed On 07-27-2020 10:18:59 FISHERIES MANAGER by Guillermo Pérez [email or web address] <ELECTRONICALLY SIGNED> By: Guillermo Pérez MD 07/27/20 1018 06 06 Guillermo Pérez MD /JENNA
[2020-07-28 04:00] VITALS: BP 178/88
[2020-07-28 06:05] LABS: GLYCOHEMOGLOBIN (HGB A1C) 4.8 % (4.8-5.6)
[2020-07-28 06:37] LABS: HEMATOCRIT 22.7 % (37.0-47.0); HEMOGLOBIN 7.6 gm/dL (12.0-15.0); MCH 26.7 pg (26.0-34.0); MCHC 33.5 g/dL (28.0-37.0); MCV 79.9 fL (80.0-100.0); RBC 2.84 mil/uL (4.20-5.00); RDW 14.4 % (10.5-14.5); WBC 7.2 thou/uL (4.0-11.0)
[2020-07-28 06:59] LABS: CALCIUM 8.1 mg/dL (8.5-10.1); MAGNESIUM 1.5 mg/dL (1.8-2.4); POTASSIUM 3.7 mmol/L (3.5-5.1)
[2020-07-28 08:00] VITALS: BP 153/77
[2020-07-28 11:08] LABS: URINE BILIRUBIN NEGATIVE (Negative); URINE BLOOD TRACE (Negative); URINE CLARITY CLEAR; URINE COLOR YELLOW; URINE GLUCOSE-RANDOM* NEGATIVE (Negative); URINE KETONES NEGATIVE (Negative); URINE NITRITE-REFLEX NEGATIVE (Negative); URINE PROTEIN (DIPSTICK) 3+ (Negative); URINE UROBILINOGEN 0.2 E.U./dl (0.2-1.0)
[2020-07-28 11:11] LABS: URINE LEUKOCYTES-REFLEX 2+ (Negative)
[2020-07-28 11:29] VITALS: BP 162/83
[2020-07-28 11:34] LABS: CASTS None Seen /LPF (None Seen); SQUAMOUS >10 Many /LPF (0-3); URINE RBC 0-2 Rare /HPF (0-2)
[2020-07-28 11:35] LABS: BACTERIA-REFLEX 1-9 Few /HPF (None Seen); CRYSTALS None Seen /LPF (None Seen)
[2020-07-28 12:49] VITALS: BP 162/83
--- NOTE | 2020-07-28 12:50 | NUR ---
Case opened to follow for dc planning. Pt currently on 3w r/o covid first test negative. Pt known to cm from previous admissions. Marketing Production Coordinator spoke with the pt via phone and also her bernarda/geoff Dunaway per pt request. Emelyn notes she is getting more involved with the pt's care and will be helping her with f/u appts and care in the home. The pt lives in a sr apt with elev. No steps. Has a rwalker for gait. No other dme. She has had homemaker services thru her [place] medicaid for years ([facility]) however [facility] has not been able to come for several weeks. They are working on getting a new caregiver. Pt has RN 1xmonthly. Mingo Dunaway reports she is changing her [facility]cp from [facility] [address] and she will advise of that appointment. She is open to HH RN and therapy f/u at dc if needed. Pt now on 4liters of o2, heprin gtt and being treated for CHF and elev bp. Will follow along for possible hh referral at dc. PT/OT courtney requested.
--- NOTE | 2020-07-28 13:59 | NUR ---
MEAGAN WILLIAM, PT SISTER, CALLED 3[facility] TO REPORT POST DISCHARGE PLANS MADE. PLANS ARE FOLLOWS: PT WILL SEE DR. RAYO, INTERNAL MED, ON AUG 20, 2020 AT 2:30PM. MEAGAN STATED THIS IS THE EARLIEST THE OFFICE WOULD SCHEDULE PT IN FOR A FOLLOW UP.
[2020-07-28 15:47] VITALS: BP 146/63
--- NOTE | 2020-07-28 15:57 | HC ---
[facility] [place] [address] CONSULTATION Name: MARIANO EISENBERG Room #: 360-P ADM IN M.R.#: [id number] Admission: 07/26/20 Attend Phys: Isreal Vasquez MD Discharge: Date of : 46 Report #: [id number] THIS REPORT FOR: cc: FAM - Family physician unknown FAM - Family physician unknown Guillermo Pérez MD ~ CARDIOLOGY CONSULTATION REASON FOR CONSULTATION: Shortness of breath. HISTORY OF PRESENT ILLNESS: The patient is a 69-year-old female with history of hypertension, diabetes, chronic renal insufficiency, CHF, presenting to the Emergency Room with worsening shortness of breath, cough and worsening bilateral lower extremity edema. Upon presentation, her blood pressure was noted to be 204/123. She is afebrile. She was noted to have crackles bilaterally and lower extremity edema with a creatinine of 1.9, troponin 0.13, ProBNP 8069, hemoglobin of 7. Her chest x-ray shows no acute process with no evidence of CHF and lower extremity Doppler showed no evidence of DVT. PAST MEDICAL HISTORY: As above. SOCIAL HISTORY: Does not smoke. FAMILY HISTORY: Noncontributory. ALLERGIES: Include PENICILLIN. MEDICATIONS: Have been reviewed include aspirin, metoprolol, hydralazine, and Lasix. PHYSICAL EXAMINATION: VITAL SIGNS: Temperature 37.3, pulse 85, respirations 20, blood pressure 168/87, sats are 98%. GENERAL: The patient appears to be in no acute distress, lying flat in bed with no respiratory difficulties. Her COVID-19 test is pending. ASSESSMENT AND PLAN: The patient presents with worsening shortness of breath in the setting of what appears to be hypertensive emergency. I agree with IV diuretics. I agree with beta-sahil therapy. I will start Norvasc 10 mg a day. The patient likely has acute on chronic diastolic heart failure and on top of that she does have acute on chronic renal insufficiency. Her troponin is likely secondary to her elevated blood pressures and there is no ischemia on her [facility] [address] [place] [address] CONSULTATION Name: MARIANO EISENBERG Room #: [facility] IN M.R.#: [id number] Admission: 07/26/20 Attend Phys: Isreal Vasquez MD Discharge: Date of : 46 Report #: [id number] EKG. We will continue to optimize her blood pressure and check an echo in the morning. We will continue to follow. <ELECTRONICALLY SIGNED> By: Guillermo Pérez MD 07/28/20 1557 1252 [id number] Guillermo Pérez MD /nt
--- NOTE | 2020-07-28 16:21 | NUR ---
FAXED REFERRAL TO [facility] SPOKE WITH MARITA IN INTAKE SHE RECEIVED REFERRAL WILL REVIEW. DP TO FOLLOW.
[2020-07-28 20:17] VITALS: BP 158/75
--- NOTE | 2020-07-28 20:28 | NUR ---
REPORT CALLED TO MARIANO SAHA ON 2N. PT TO BE TRANSFERED VIA BED WITH O2 AT 2L PER NC.
[2020-07-29 05:51] LABS: ALBUMIN 2.7 g/dL (3.4-5.0); CALCIUM 8.5 mg/dL (8.5-10.1); CREATININE 2.1 mg/dL (0.6-1.0); PHOSPHORUS 3.6 mg/dL (2.5-4.9); POTASSIUM 4.2 mmol/L (3.5-5.1)
[2020-07-29 08:20] LABS: HEMOGLOBIN 6.9 gm/dL (12.0-15.0)
[2020-07-29 08:21] LABS: HEMATOCRIT 21.3 % (37.0-47.0); MCH 26.8 pg (26.0-34.0); MCHC 32.6 g/dL (28.0-37.0); MCV 82.3 fL (80.0-100.0); RBC 2.59 mil/uL (4.20-5.00); RDW 14.8 % (10.5-14.5); WBC 5.5 thou/uL (4.0-11.0)
[2020-07-29 08:54] VITALS: BP 182/87
--- NOTE | 2020-07-29 10:55 | 2DMMODE ---
[facility] [place] [address] 2 D/M-MODE ECHOCARDIOGRAM Name: MARIANO EISENBERG Room #: 204-P ADM IN M.R.#: [id number] Admission: 07/26/20 Attend Phys: Isreal Vasquez MD Discharge: Date of : 46 Report #: [id number] THIS REPORT FOR: cc: FAM - Family physician unknown FAM - Family physician unknown Antonio Loja MD [facility] ~ ADDENDUM APPROVED REPORT Study performed: 07/29/2020 09:59:53 EXAM: Limited 2D, Doppler, and color-flow Echocardiogram Patient Location: In-Patient Room #: 204 Status: routine BSA: 1.84 HR: 76 bpm Other Information Study Quality: Adequate Risk Factors: Cardiac Risk Factors: HTN Indications Hypertension/HDD 2D Dimensions IVSd: 15.24 (7-11mm) LVOT Diam: 19.77 (18-24mm) LVDd: 45.87 mm PWd: 16.04 (7-11mm) LVDs: 36.23 (25-40mm) Left Atrium: 44.12 (27-40mm) Aortic Root: 28.48 mm IVC: 14.00 mm Volumes Left Atrial Volume (Systole) Single Plane 4CH: 97.50 mL Single Plane 2CH: 90.38 mL Tricuspid Valve TR Peak Jose.: 3.89 m/s RAP Estimate: 10.00 mmHg TR Peak Gr.: 60.47 mmHg RVSP: 70.00 mmHg Left Ventricle The left ventricle is normal size. Mild concentric left ventricular [facility] [address] [place] [address] 2 D/M-MODE ECHOCARDIOGRAM Name: MARIANO EISENBERG Room #: 204-P ADM IN M.R.#: [id number] Admission: 07/26/20 Attend Phys: Isreal Vasquez, Discharge: Date of : 46 Report #: [id number] hypertrophy. Left ventricular systolic function is borderline. LVEF is 45-50%. Right Ventricle The right ventricle is normal size. The right ventricular systolic function is normal. Atria The left atrium size is normal. The right atrium size is normal. Aortic Valve The aortic valve is normal in structure. No aortic regurgitation is present. There is no aortic valvular stenosis. Mitral Valve The mitral valve is normal in structure. Mild mitral regurgitation. No evidence of mitral valve stenosis. Tricuspid Valve The tricuspid valve is normal in structure. Mild to moderate tricuspid regurgitation. The RVSP is >60 mmHg. Pulmonic Valve The pulmonary valve is normal in structure. There is no pulmonic valvular regurgitation. Great Vessels The aortic root is normal in size. IVC is normal in size and collapses >50% with inspiration. Pericardium There is no pericardial effusion. <Conclusion> Normal left ventricular size with mild concentric hypertrophy EF 50% Normal right ventricular size and function Normal atrial size Color-flow Doppler study was performed of the aortic/mitral/tricuspid/pulmonary valve Mild mitral valve insufficiency Mild tricuspid valve insufficiency [facility] [address] [place] [address] 2 D/M-MODE ECHOCARDIOGRAM Name: MARIANO EISENBERG Room #: 204-P ADM IN M.R.#: [id number] Admission: 07/26/20 Attend Phys: Isreal Vasquez, Discharge: Date of : 46 Report #: [id number] Pulmonary systolic pressure estimated 60 mmHg No pericardial effusion <ELECTRONICALLY SIGNED> By: Antonio Loja MD, FACC 07/29/20 1055 54 54 Antonio Loja MD, FACC /INF
[2020-07-29 11:15] VITALS: BP 166/87
[2020-07-29 17:00] VITALS: BP 178/80
--- NOTE | 2020-07-29 17:13 | NUR ---
ASSUMED CARE OF PT AT SHIFT CHANGE. ASSESSMENTS CHARTED. MEDS GIVEN PER SEP. PT A&OX3, FORGETFUL. C/O PAIN TREATED WITH PO MEDS. STILL NEED STOOL SAMPLE. HOLDING ELIQUIS. WILL CONTINUE TO MONITOR AND FOLLOW POC.
[2020-07-29 21:05] VITALS: BP 177/85
[2020-07-30 00:38] VITALS: BP 154/68
[2020-07-30 05:05] VITALS: BP 173/76
[2020-07-30 05:14] LABS: HEMATOCRIT 21.2 % (37.0-47.0); HEMOGLOBIN 7.1 gm/dL (12.0-15.0); MCH 26.9 pg (26.0-34.0); MCHC 33.5 g/dL (28.0-37.0); MCV 80.2 fL (80.0-100.0); RBC 2.64 mil/uL (4.20-5.00); RDW 14.6 % (10.5-14.5); WBC 7.6 thou/uL (4.0-11.0)
[2020-07-30 05:31] LABS: ALBUMIN 2.8 g/dL (3.4-5.0); CALCIUM 8.9 mg/dL (8.5-10.1); CREATININE 2.2 mg/dL (0.6-1.0); PHOSPHORUS 3.5 mg/dL (2.5-4.9); POTASSIUM 3.7 mmol/L (3.5-5.1)
--- NOTE | 2020-07-30 05:33 | NUR ---
ASSUME CARE 1900. PT/VITALS STABLE. DENIES ANY PAIN. TOLERATES ACTIVITY WELL. NO DISTRESS NOTED THROUGH THE NIGHT. SR ON MONITOR. ASSESSMENT CHARTED. PROGRESSING WELL WITH POC. PLAN IS TO CONTINUE DIURESING PT/MANAGE ELECROLYTES WILL CONTINUE TO MONITOR AND FOLLOW WITH POC
[2020-07-30 07:37] VITALS: BP 163/68
[2020-07-30 11:40] VITALS: BP 144/61
[2020-07-30 15:44] VITALS: BP 157/78
--- NOTE | 2020-07-30 17:53 | NUR ---
Son at bedside. sp with patient regarding post acute care. Patient interest in post acute. explained to son that no visitors. Patient initally interest in [facility] but do not accept insurance. referral to [facility].
--- NOTE | 2020-07-30 18:31 | NUR ---
PT IS ALERT AND ORIENTED X4, SOMETIMES FORGETFUL, ANXIOUS. PT HAD SYSTOLIC BP >160 IN AM. PT SEEN BY NEPHRO. BP RX ADJUSTED AND BP HAS LOWERED THROUGH OUT THE DAY. PT HAS HAD SOME NAUSEA, BUT NO FURTHER COMPLAINTS THROUGHOUT THE DAY. PT SON AT BEDSIDE THIS AFTERNOON. POC IS TO MONITOR BLOOD PRESSURE AND MANAGE APPROPRIATELY WITH RX. PT/OT CONSULTED. PROMOTE AMBULATION AROUND UNIT, USING WALKER AND STANDBY ASSIST. FALL PRECAUTIONS IN PLACE. NO CONCERNS AT THIS TIME.
[2020-07-30 19:36] VITALS: BP 139/69
[2020-07-31 04:11] VITALS: BP 176/84
[2020-07-31 07:39] VITALS: BP 173/65
[2020-07-31 07:45] LABS: ALBUMIN 2.7 g/dL (3.4-5.0); CALCIUM 9.1 mg/dL (8.5-10.1); CREATININE 2.1 mg/dL (0.6-1.0); PHOSPHORUS 4.5 mg/dL (2.6-4.7); POTASSIUM 3.8 mmol/L (3.5-5.1)
[2020-07-31 11:38] VITALS: BP 128/63
--- NOTE | 2020-07-31 11:50 | NUR ---
[facility] can accept the pt for SNF stay when medically ready. They will need a covid test within 48hr of dc. Pt to have EGD/Colon tomorrow per GI. The [facility] liatish will contact pt's niece/geoff Dunaway as well. Pt updated. Will f/u tomorrow to determine if pt will be dc ready over the weekend.
[2020-07-31 15:51] VITALS: BP 146/65
--- NOTE | 2020-07-31 17:56 | NUR ---
ASSUMED CARE SHIFT CHANGE. ASSESSMENTS CHARTED.MEDS GIVEN PER SEP. VSS. C/O HEADACHE MANAGED WITH TYLENOL. BOWEL PREP STARTED. PLAN FOR EGD COLONOSCOPY TOMORROW. PT UNDERSTANDING. PT CURRENTLY RESTING IN BED. DENIES NEEDS. CONTINUING POC. WILL PASS ON REPORT TO WILFRED RN.
[2020-07-31 19:28] VITALS: BP 138/60
[2020-08-01 03:40] VITALS: BP 160/66
[2020-08-01 04:40] LABS: ALBUMIN 2.8 g/dL (3.4-5.0); CALCIUM 8.9 mg/dL (8.5-10.1); CREATININE 1.9 mg/dL (0.6-1.0); PHOSPHORUS 3.9 mg/dL (2.6-4.7); POTASSIUM 3.8 mmol/L (3.5-5.1)
--- NOTE | 2020-08-01 04:49 | NUR ---
SLEPT PART OF SHIFT. DENIES COMPLAINTS OF PAIN. GI PREP COMPLETED LAST PM AND ASSIST UP TO COMODE NEEDED. WILL OBSERVE STOOL NEXT TIME PATIENT GETS UP. PROGRESSING TOWARDS GI PROCEDURE TODAY. WORKING ON GOALS AND PLAN OF CARE FOR NOC. CONTINUE TO ASSES CLOSELY.
[2020-08-01 07:35] VITALS: BP 174/75
[2020-08-01 08:21] LABS: HEMATOCRIT 21.8 % (37.0-47.0); HEMOGLOBIN 7.2 gm/dL (12.0-15.0); MCH 26.8 pg (26.0-34.0); MCV 81.4 fL (80.0-100.0); RBC 2.68 mil/uL (4.20-5.00); RDW 14.9 % (10.5-14.5); WBC 6.1 thou/uL (4.0-11.0)
--- NOTE | 2020-08-01 12:16 | NUR ---
124C and neg covid test faxed to [facility] SNF liason. Possible dc this weekend. Pt have EGD/COLON today. [facility] updated. Weekend staff to call their liason to coordinate if ready. Pt will need a chart copy. The SNF liason is Flo at [phone], fax [phone], report [phone]
[2020-08-01 13:00] VITALS: BP 160/76
--- NOTE | 2020-08-01 14:27 | NUR ---
pt's caregiver Christin called in and said she has no family to connect with so wanted to leave her number with us for whem she is discharged to a intermediate facility Christin #[phone].
[2020-08-01 16:05] VITALS: BP 143/61
[2020-08-01 19:48] VITALS: BP 130/59
--- NOTE | 2020-08-01 19:57 | NUR ---
RECEIVED PT'S CARE AROUND 0730; PT. ON BED; RESTING WITH EYES CLOSED; EQUAL CHEST RISING NOTICED; SR ON THE MONITOR; BP ON THE 170s; AM MEDICATION GIVEN; NPO; ALERT TO PERSON, SITUATION AND YEAR; FORGETFUL; GONE FOR PROCEDURE AROUND 1000; BACK FROM PROCEDURE AROUND 1300; NO C/O PAIN; RECEIVED CALL FROM SON DURING THE AFTERNOON; EDUCATED ABOUT VISITOR POLICY; [facility] TO VISIT PT. DURING TUESDAY; PEST CONTROL WORKER [facility]; TALK WITH OLAF; DESIGNATOR VISITOR UPDATED; TRIED TO CONTAC SON; NO NUMBER IN THE SYSTEM; NUMBER PROVIDED BY PT. OUT OF SERVICE; PT. NOTIFIED ABOUT VISITOR LIST UPDATED; [facility]; ASSESSMENT CHARGED; FOLLOWING POC; PASSED ON REPORT;
[2020-08-02 03:18] LABS: HEMATOCRIT 21.4 % (37.0-47.0); HEMOGLOBIN 7.1 gm/dL (12.0-15.0); MCH 26.9 pg (26.0-34.0); MCHC 33.3 g/dL (28.0-37.0); MCV 80.9 fL (80.0-100.0); RBC 2.65 mil/uL (4.20-5.00); RDW 14.6 % (10.5-14.5)
[2020-08-02 03:33] VITALS: BP 171/85
--- NOTE | 2020-08-02 03:50 | NUR ---
Assumed pt care at 1900. Pt is alert and oriented to self. Pt is stable and laying in bed. Fall precaution in place. Denies pain. Assessment completed and documented. Scheduled meds administered administered to pt. Tolerated PO intake. No acute events overnight. With morning vital sign, elevated blood pressure noted. BP treated with medication. Continue to monitor. No further needs at this time.
[2020-08-02 06:04] VITALS: BP 118/60
[2020-08-02 07:15] VITALS: BP 146/69
[2020-08-02] MEDS ORDERED: HYDRALAZINE 5050 MG PO (10:41)
[2020-08-02] MEDS ORDERED: CARVEDILOL25 MG PO (10:42)
[2020-08-02] MEDS ORDERED: DEMADEX20 MG PO (10:44)
[2020-08-02] MEDS ORDERED: PROTONIX 20 MG20 M1 PO (10:44)
[2020-08-02 11:20] VITALS: BP 146/74
--- NOTE | 2020-08-02 11:42 | NUR ---
FAXED [facility] THE DISCHARGE ORDERS/SUMMARY AND NEGATIVE COVID RESULTS FROM 07/27 & 07/31/20. [facility] ARRANGED WC/VAN TRANSPORTATION FOR 1:00 PM TODAY, 08/02/20. CONFIRMED WITH STEPHIE/GENTRY AT [facility] THAT THEY RECEIVED. SPOKE TO MEAGAN WILLIAM (NIECE/DPOA) OF PLANS/TIME OF DISCHARGE TO FACILITY. NURSING UNIT NOTIFIED. CHART COPY COMPLETED. [facility] [phone]; FAX [phone]
--- NOTE | 2020-08-02 13:01 | NUR ---
PT IS ALERT AND ORIENTED TO SELF AND PLACE. PT IS INCONTINENT OF BLADDER. PT DPOA IS NIECE. PT IS TO DISCHARGE TO [facility]. PT FAMILY NOTIFIED. NO CONCERNS AT THIS TIME. PT DISCHARGED WITH [facility] TRANSP[facility]ATION.
--- NOTE | 2020-08-06 16:06 | PATH ---
[facility] [place] [address] PATHOLOGY RPT PROCEDURE Name: JESSICA EISENBERG Room #: 204-P DIS IN M.R.#: [id number] Admission: 07/26/20 Date of : 46 Discharge: 08/02/20 Report #: [id number] Path Case #: [id number] [facility] Accession Number: [id number] . 01 Material submitted: . PART A: duodenum - DUODENAL BX R/O CELIAC PART B: pyloric antrum - ANTRUM BX R/O H. PYLORI PART C: esophagus - DISTAL ESOPHAGUS R/O GARZA'S. Modifiers: distal . 01 Clinical history: . ANEMIA,HEME + STOOL GARZA'S, HIATAL HERNIA . 02 Diagnosis: A. Small bowel mucosa, duodenum, rule out celiac, endoscopic biopsy: - Focal fundic-type metaplasia associated with nonspecific acute and chronic duodenitis, findings compatible with peptic duodenitis. - Negative for villous blunting or increase in intraepithelial lymphocytes. . B. Gastric mucosa, antrum, endoscopic biopsy: - Moderate to marked reactive gastropathy with moderate active gastritis. - Brown-yellow fibrillar pigment within lamina propria, see comment. - Iron special stain pending, to be reported as an addendum. - Negative for intestinal metaplasia or dysplasia. - Negative for Helicobacter pylori (properly-controlled immunohistochemical stain performed). . C. Gastroesophageal mucosa, distal esophagus rule out Garza's, endoscopic biopsy: - Moderate chronic esophagitis. - Negative for intestinal metaplasia or dysplasia. - Brown-yellow fibrillar pigment within lamina propria and surface mucosa. See comment. . (IUV:mml; 08/05/2020) [facility] 08/05/2020 1647 Local . 02 Comment: Part B and C. Examination shows moderate to marked active inflammation in addition to features of reactive gastropathy within the "antrum" biopsy tissue. In addition, a pigment is identified within the lamina propria. The differential diagnosis includes iron pigment as opposed to other extraneous pigments. Similar pigment is noted within the "distal esophagus" biopsy tissue as well. . [address] [address] PATHOLOGY RPT PROCEDURE Name: BILLJESSICA Room #: 204-P DIS IN M.R.#: [id number] Admission: 07/26/20 Date of : 46 Discharge: 08/02/20 Report #: [id number] Path Case #: [id number] Iron special stain is pending on block B1 and the results will be reported in an addendum. (IUV:mml; 08/05/2020) . 02 Addendum: . This addendum is issued subsequent to reviewing a properly controlled iron stain performed on block B1. It shows reactivity present within the extracelluar fibrillar pigmented material supporting the finding of iron deposition within the lamina propria. The material is extracellular, and none is identified within the stromal as well as epithelial cells. Findings are likely suggestive of iron pill gastritis and argue against gastric (glandular) siderosis. Please correlate clinically. (IUV:iggy; 08/06/2020) . . Professional services performed by [employer] at [facility], [facility] [address], [place] [address]. Technical services performed by [employer] at [address] [place] [address], [address] [place] [address]. QTP/08/06/2020 Addendum Electronically Signed by Suellen Mixon MD, Pathologist . 02 Electronically signed: . Suellen Mixon MD, Pathologist NPI- [id number] . 01 Gross description: . A. The specimen is received in formalin, labeled "Bill, Jessica, BX duodenal" and consists of 2 fragments of pink-rashid tissue measuring 0.3 x 0.2 cm and 0.3 x 0.3 cm which are entirely submitted in A1. . B. The specimen is received in formalin, labeled "Bill, Jessica, BX antrum" and consists of 2 fragments of pink-rashid tissue measuring 0.3 x 0.2 cm and 0.3 x 0.3 cm which are entirely submitted in B1. . C. The specimen is received in formalin, labeled "Bill, Jessica, BX distal esophagus" and consists of a fragment of pink-rashid tissue measuring 0.4 x 0.3 cm which is entirely submitted in C1. (SDY; 08/04/2020) SYU/SYU 08/04/2020 1327 Local . 02 Pathologist provided ICD-10: K29.80, K31.9, K29.70, K20.90 . 02 CPT . 515710, 362936, 790030, 797286, D10751 Specimen Comment: A courtesy copy of this report has been sent to [phone], [phone] Specimen Comment: [phone] [facility] [address] [place] [address] PATHOLOGY RPT PROCEDURE Name: JESSICA EISENBERG Room #: 204-P DIS IN M.R.#: [id number] Admission: 07/26/20 Date of : 46 Discharge: 08/02/20 Report #: [id number] Path Case #: [id number] Specimen Comment: Report sent to ,DR PETERS / DR RIBEIRO Performed at: 01 [facility] [address], [place], [place] [address] MD Blaine Ramos MD Phone: [phone] Performed at: [address] [id number] MD Suellen Mixon MD Phone: [phone]
== END 2020-08-02 13:30 | DRG 291 ==
LOC: ER 21:33 → 3W 23:50 → EROBS 23:50 → 2N 23:50 → 3W 07-27 00:34 → 2N 07-28 21:48
PROVIDERS: Anesthesiology; Emergency Medicine; Hospitalist; Internal Medicine Nephrology; Nurse Practitioner Family; ADMIT Internal Medicine; ATTEND Internal Medicine
PROC: 0DB78ZX Excision of Stomach, Pylorus, Via Natural or Artificial Opening Endoscopic, Diagnostic (ICD-10-PCS; principal; 2020-08-01)
PROC: 0DB98ZX Excision of Duodenum, Via Natural or Artificial Opening Endoscopic, Diagnostic (ICD-10-PCS; principal; 2020-08-01)
PROC: 0DB58ZX Excision of Esophagus, Via Natural or Artificial Opening Endoscopic, Diagnostic (ICD-10-PCS; principal; 2020-08-01)
PROC: 0DJD8ZZ Inspection of Lower Intestinal Tract, Via Natural or Artificial Opening Endoscopic (ICD-10-PCS; 2020-08-01)
DX: I13.0 Hypertensive heart and chronic kidney disease with heart failure and stage 1 through stage 4 chronic kidney disease, or unspecified chronic kidney disease (principal); J96.00 Acute respiratory failure, unspecified whether with hypoxia or hypercapnia; I50.31 Acute diastolic (congestive) heart failure; I16.1 Hypertensive emergency; N39.0 Urinary tract infection, site not specified; E78.5 Hyperlipidemia, unspecified; N18.9 Chronic kidney disease, unspecified; E11.22 Type 2 diabetes mellitus with diabetic chronic kidney disease; D50.9 Iron deficiency anemia, unspecified; K22.8 Other specified diseases of esophagus; F32.9 Major depressive disorder, single episode, unspecified; K29.70 Gastritis, unspecified, without bleeding; E66.01 Morbid (severe) obesity due to excess calories; K64.8 Other hemorrhoids; K22.70 Barrett's esophagus without dysplasia; K44.9 Diaphragmatic hernia without obstruction or gangrene; E11.9 Type 2 diabetes mellitus without complications; Z20.822 Contact with and (suspected) exposure to COVID-19; Z79.4 Long term (current) use of insulin; Z79.01 Long term (current) use of anticoagulants; Z79.899 Other long term (current) drug therapy; Z68.27 Body mass index [BMI] 27.0-27.9, adult
CPT/HCPCS: 10081; 10879; 62110; 62900; 70005

== ENCOUNTER 2021-08-12 13:21 | Inpatient (IN) | payer OTHER ==
[~2021-08-12] VITALS: Ht 165.1 cm; Wt 79.5 kg
[~2021-08-12 13:21] MED LIST changes: +CARVEDILOL25 MG PO; +DEMADEX20 MG PO; +PROTONIX 20 MG20 M1 PO
[2021-08-12 13:23] VITALS: BP 150/74
[2021-08-12 13:51] LABS: ABSOLUTE NEUTROPHILS 5.1 thou/uL (1.4-8.2); BASOPHILS 0.6 % (0.0-2.0); EOSINOPHILS 3.4 % (0.0-3.0); HEMATOCRIT 23.2 % (37.0-47.0); HEMOGLOBIN 7.8 gm/dL (12.0-15.0); MCH 26.1 pg (26.0-34.0); MCHC 33.7 g/dL (28.0-37.0); MCV 77.5 fL (80.0-100.0); MONOCYTES 8.3 % (1.0-8.0); PLATELET COUNT 246 thou/uL (150-400); POLYS 72.7 % (36.0-66.0); RDW 17.6 % (10.5-14.5)
[2021-08-12 14:00] LABS: CREATININE 3.2 mg/dL (0.6-1.0)
[2021-08-12 14:36] LABS: URINE BILIRUBIN NEGATIVE (Negative); URINE BLOOD NEGATIVE (Negative); URINE CLARITY SL CLOUDY; URINE COLOR YELLOW; URINE GLUCOSE-RANDOM* NEGATIVE (Negative); URINE KETONES NEGATIVE (Negative); URINE LEUKOCYTES-REFLEX TRACE (Negative); URINE NITRITE-REFLEX NEGATIVE (Negative); URINE PROTEIN (DIPSTICK) TRACE (Negative); URINE SPECIFIC GRAVITY 1.015 (1.005-1.035); URINE UROBILINOGEN 0.2 E.U./dl (0.2-1.0)
[2021-08-12] MEDS ORDERED: NORVASC10 MG PO (16:10)
[2021-08-12] MEDS ORDERED: LIPITOR40 MG PO (16:10)
[2021-08-12] MEDS ORDERED: CARDURA2 MG PO (16:11)
[2021-08-12] MEDS ORDERED: CARVEDILOL25 MG PO (16:11)
[2021-08-12] MEDS ORDERED: NORCO5 PO (16:12)
[2021-08-12] MEDS ORDERED: HYDRALAZINE HC100 MG PO (16:12)
[2021-08-12] MEDS ORDERED: LASIX 40 MG TAB40 MG PO (16:13)
[2021-08-12] MEDS ORDERED: ZESTRIL40 MG PO (16:13)
[2021-08-12 16:35] LABS: FOLIC ACID 12.2 ng/mL (8.6-58.9)
[2021-08-12 17:56] VITALS: BP 147/56
[2021-08-12 19:32] VITALS: BP 119/52
[2021-08-13 02:41] LABS: MCHC 33.8 g/dL (28.0-37.0); RBC 2.65 mil/uL (4.20-5.00)
[2021-08-13 02:45] LABS: ABSOLUTE NEUTROPHILS 3.6 thou/uL (1.4-8.2); HEMATOCRIT 20.2 % (37.0-47.0); HEMOGLOBIN 6.8 gm/dL (12.0-15.0); MCH 25.7 pg (26.0-34.0); MCV 76.1 fL (80.0-100.0); MONOCYTES 9.8 % (1.0-8.0); PLATELET COUNT 209 thou/uL (150-400); POLYS 65.2 % (36.0-66.0); RDW 18.1 % (10.5-14.5); WBC 5.5 thou/uL (4.0-11.0)
[2021-08-13 04:02] LABS: ALBUMIN 2.4 g/dL (3.4-5.0); CALCIUM 7.5 mg/dL (8.5-10.1); CREATININE 2.8 mg/dL (0.6-1.0); POTASSIUM 4.2 mmol/L (3.5-5.1); TOTAL BILIRUBIN 0.2 mg/dL (0.2-1.0)
[2021-08-13 04:41] VITALS: BP 150/70
[2021-08-13 07:36] VITALS: BP 157/79
--- NOTE | 2021-08-13 07:47 | EKG ---
[address] [place] [address] ELECTROCARDIOGRAM REPORT Name: MARIANO EISENBERG Room #: 460-P ADM IN M.R.#: [id number] Admission: 08/12/21 Attend Phys: Salvador Valladares MD Discharge: Date of : 46 Report #: [id number] [facility] ED Test Date: 2021-08-12 Test Time: 13:38:16 Pat Name: MARIANO EISENBERG Department: Room: [facility] Gender: F Senior Vice President: CARLA : 1950 Requested By: Jarred Horner Order Number: [id number] MD: Neel Marcelino Measurements Intervals [place] Rate: 80 P: 51 ME: 164 QRS: -9 QRSD: 89 T: 31 QT: 348 QTc: 402 Interpretive Statements Sinus rhythm Nonspecific ST and T wave abnormality Compared to ECG 07/26/2020 22:07:18 ST and T wave abnormality is less pronounced Electronically Signed On 08-13-2021 7:47:[address] JUSTICE by Neel Marcelino [email or web address] <ELECTRONICALLY SIGNED> By: Neel Marcelino MD, [facility] 08/13/21 0747 1338 Neel Marcelino MD, [facility] /EPI
--- NOTE | 2021-08-13 07:55 | NUR ---
PT ALERT X1. ADMITTED FROM [facility] FOR LOW HG . HG REDRAW IN ER= HG 7.8 BUN AND CR ELEVATED ALSO UPON ARRIVAL. PT NODS HEAD YES AND NO AND WILL ANSWER NS FOR SOME QUESTIONS. FOLLOWS SIMPLE COMMANDS. POOR HISTORIN. OBTAINED ADMISSION HX FROM PTS KATRINA NARAYANAN. MEAGAN NARAYANAN GAVE VERBAL CONSENT OVER THE PHONE WITNESSED BY 2 NS FOR BLOOD TRANSFUSION IF NECESSARY. VSS UNLABORED ON RA. SAT 97%. NO C/O PAIN. NO S/S SOA LAST NIGHT. NO BLEEDING NOTED. BED DOWN CALL LIGHT IN REACH. FALL PRECAUTIONS IN PLACE. HG 6.8 THIS AM. DAY SHIFT NS AWARE AND MEDHAT CALL TO GET TRANSFUSION ORDERS.
[2021-08-13 09:54] VITALS: BP 134/74; BP 136/79; BP 139/70; BP 140/80; BP 152/76
--- NOTE | 2021-08-13 11:46 | NUR ---
PT ADMITTED RELATED TO LOW Hgb AND CHF. CM REVIEWED CHART AND SPOKE WITH CARE TEAM. CM MET WITH PT AT BEDSIDE THIS DAY. PT APPEARED TO BE ALET TO SELF. PT CONFIRMED THAT SHE HAD BEEN LIVING IN A NURISNG HOME ROLL ON WORKER. SHE CONFIRMED [facility]. CM ASKED HOW PT AHD BEEN GETTING AROUND AT THE FACILITY AND SHE WASN'T ABLE TO INDICATE. WHEN ASKED IF SHE PLAND TO RETURN TO [facility] WHEN SHE WAS MEDICALLY STABLE SHE BETTE NO SHE WAS GOING TO STAY WITH HER SON. CM REQUESTED NAD RECEIVED PERMISSION TO CALL PT'S NIECE/DPOA MEAGAN NARAYANAN . SHE INDICATED THAT PT RESIDES IN LTC AT [facility]. SHE DIDN'T KNOW HOW PT HAD GOTTEN AROUND ROLL ON WORKER. CM CALLED FACILITY AND LEFT VM FOR PT'S NURSE. CM AWAITING RETURN CALL. IT IS ANTICPATED THAT PT WILL RETURN TO [facility] ONCE MEDICALLY STABLE. PT GETTING BLOOD TODAY. GI CONSULTED. CM FOLLOWING.
[2021-08-13 13:04] LABS: % SATURATION 22 % (20-39); IRON 69 ug/dL (50-170); TIBC 312 ug/dL (250-450)
[2021-08-13 15:30] VITALS: BP 138/64
[2021-08-13 15:45] LABS: HEMATOCRIT 27.6 % (37.0-47.0)
[2021-08-13 15:48] LABS: HEMOGLOBIN 9.3 gm/dL (12.0-15.0)
--- NOTE | 2021-08-13 16:51 | NUR ---
PT ALERT EATING WELL THROUGHOUT THE DAY, LARGE BM X2 DARK LIQUID, C/O LEG PAIN PT GIVEN 1 UNIT PRBC WITHOUT COMPLICATIONS. MAX ASSIST WITH TRANSFERING .
[2021-08-13 20:30] VITALS: BP 141/67
[2021-08-14 02:59] VITALS: BP 111/54
[2021-08-14 03:39] LABS: HEMATOCRIT 24.7 % (37.0-47.0); HEMOGLOBIN 8.5 gm/dL (12.0-15.0); MCH 27.1 pg (26.0-34.0); MCHC 34.5 g/dL (28.0-37.0); MCV 78.5 fL (80.0-100.0); RBC 3.15 mil/uL (4.20-5.00); RDW 19.5 % (10.5-14.5)
[2021-08-14 03:51] LABS: CALCIUM 7.8 mg/dL (8.5-10.1); CREATININE 2.7 mg/dL (0.6-1.0)
--- NOTE | 2021-08-14 06:36 | NUR ---
report given to pre-op rn Ludivina and pt taken to [facility] via bed at 0637.
[2021-08-14 08:10] VITALS: BP 177/83
--- NOTE | 2021-08-14 09:27 | NUR ---
WOUND CONSULT; THE RN TODAY HAD A CONCERN FOR THIS PATIENT AND ASKED ME TO ASSESS HER LEFT GREAT TOE. THE TOE WAS ASSESSED AND IS NOT OPEN. THERE IS A SMALL DICOLORATION AKA BRUISE-LIKE. THE PATIENT WAS ABLE TO ANSWER AND SHE DENIED PAIN. I WAS NOT IMPRESSED WITH THIS TOE. I HAVE NO OTHER RECOMMENDATIONS AT THIS TIME EXCEPT TO FOLLOW UP WITH THIS PATIENT DURING THIS HOSPITALIZATION. RECOMMENDATIONS: -PAINT WITH BETADINE DAILY LEAVE JORDI.
--- NOTE | 2021-08-14 10:57 | NUR ---
A/O X [address], ROOM AIR, MAX ASSIST/BEDBOUND, L AC INFILTRATED ANF RIGHT WRIST IV SALINE LOCKED. MAK IN PLACE KENA URINE NOTED, AC HS ACCU CHECKS, CLEAR LIQUID DIET, IV IRON GIVEN TODAY, SMALL DARK AREA ON LEFT GREAT TOE, MARK WOUND CARE NURSE MADE AWARE AND HE ASSESSED IT. VERY DRY SKIN GENERAL. BILATERAL LEG PAIN TYLENOL GIVEN,
--- NOTE | 2021-08-14 11:58 | NUR ---
PT HAD EGD THIS AM NO ACTIVE BLEED WAS FOUND. CARE TEAM INDICATED PT MAY BE MEDICALLY STABLE TO DC BACK TO [facility] THIS DAY. 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 THEY ASKED THAT CM FAX CLINICAL FOR THEM TO REVIEW TO SEE IF THEY WANT TO SKILLED PT UPON HER RETURN. CM FAXED CLINICAL. [facility] WAIVER ENDS THIS DAY. AWAITING THEIR RESPONSE. GERA INFORMED HOSPITALIST. CM FOLLOWING.
[2021-08-14 20:32] VITALS: BP 155/85
[2021-08-15 05:33] LABS: HEMATOCRIT 24.3 % (37.0-47.0); HEMOGLOBIN 8.4 gm/dL (12.0-15.0); MCH 27.3 pg (26.0-34.0); MCHC 34.7 g/dL (28.0-37.0); MCV 78.7 fL (80.0-100.0); RBC 3.09 mil/uL (4.20-5.00); WBC 5.9 thou/uL (4.0-11.0)
[2021-08-15 07:20] VITALS: BP 161/77
[2021-08-15 08:11] VITALS: BP 164/77
--- NOTE | 2021-08-15 12:36 | NUR ---
RECEIVED CALL FROM RN THAT DR. NORTH IS WANTING TO KNOW IF PT CAN DC BACK TO [facility] TODAY LTC I, CALLED FACILITY AND SPOKE WITH DEX MURILLO SHE CAN ACCEPT PT BACK TODAY. NOTIFIED UNIT AND DR NORTH PUT IN DC ORDERS/SUMMARY AND I FAXED THEM TO FACILITY RECEIVED CONFIRMATION. ARRANGED TRANSPORT WITH [facility] FOR 1500 TODAY. NOTIFIED UNIT AND LEFT VM WITH PT'S FAMILY AND MY NUMBER TO CALL ME IF ANY QUESIIONS
--- NOTE | 2021-08-15 15:04 | NUR ---
ASSUMED CARE OF PATIENT THIS AM. NO COMPLAINTS AT THIS TIME. PATIENT WAS RESTING IN BED EYES CLOSED. IV IRON ORDERED FOR MORNING MEDICATIONS AND NO IV ACCESS AT THAT TIME. PLACED IV IN RIGHT HAND. PATIENT BEING DISCHARGED BACK TO FACILITY. TRANSPORT ARRIVED AT 1500 AND MOVED SAFETLY TO [facility].
== END 2021-08-15 16:12 | DRG 811 ==
LOC: ER 13:21 → 4W 18:07
PROVIDERS: Nurse Practitioner; Student in an Organized Health Care Education/Training Program; ADMIT Hospitalist; ATTEND Hospitalist
PROC: 30233N1 Transfusion of Nonautologous Red Blood Cells into Peripheral Vein, Percutaneous Approach (ICD-10-PCS; principal; 2021-08-13)
PROC: 0W3P8ZZ Control Bleeding in Gastrointestinal Tract, Via Natural or Artificial Opening Endoscopic (ICD-10-PCS; 2021-08-14)
DX: D62 Acute posthemorrhagic anemia (principal); E43 Unspecified severe protein-calorie malnutrition; N17.9 Acute kidney failure, unspecified; I13.0 Hypertensive heart and chronic kidney disease with heart failure and stage 1 through stage 4 chronic kidney disease, or unspecified chronic kidney disease; N18.9 Chronic kidney disease, unspecified; I27.20 Pulmonary hypertension, unspecified; K31.7 Polyp of stomach and duodenum; E78.5 Hyperlipidemia, unspecified; I50.9 Heart failure, unspecified; I48.0 Paroxysmal atrial fibrillation; E11.22 Type 2 diabetes mellitus with diabetic chronic kidney disease; E11.42 Type 2 diabetes mellitus with diabetic polyneuropathy; F03.90 Unspecified dementia, unspecified severity, without behavioral disturbance, psychotic disturbance, mood disturbance, and anxiety; K44.9 Diaphragmatic hernia without obstruction or gangrene; Z20.822 Contact with and (suspected) exposure to COVID-19; Z86.718 Personal history of other venous thrombosis and embolism; Z86.19 Personal history of other infectious and parasitic diseases; Z88.0 Allergy status to penicillin; Z86.73 Personal history of transient ischemic attack (TIA), and cerebral infarction without residual deficits; Z86.16 Personal history of COVID-19; D50.9 Iron deficiency anemia, unspecified; Z68.29 Body mass index [BMI] 29.0-29.9, adult
CPT/HCPCS: 10040; 62110; 62900; 70005